=== PATIENT | female | born 1980 | race Caucasian/White ===

== ENCOUNTER 2017-01-27 20:39 | Emergency (ER) | payer BC, MEDICAID ==
[2017-01-27 20:53] VITALS: BP 123/63
--- NOTE | 2017-01-27 22:18 | EDM.PDOC ---
ED HISTORY OF PRESENT ILLNESS - General Chief Complaint: Respiratory Problem Stated Complaint: SOB COUGH FEVER Time Seen by Provider: 01/27/17 22:06 Source of Information: Reports: Patient History Limitations: Reports: No limitations - History of Present Illness INITIAL COMMENTS - FREE TEXT/NARRATIVE: Patient presents for evaluation and treatment of cough and cold symptoms. Patient reports that she has been ill for the last 2 days. She has tried at home [id number] medications without any symptom relief. Her current symptoms include fevers, chills, dry mouth, productive cough, shortness of breath, headaches and body aches. She denies any nausea, vomiting, diarrhea or abdominal pain. patient denies any ill contacts, however, she has a 5-year-old at home who is becoming ill. She did get her influenza shot this year. - Related Data Allergies/ADRs: Allergies Allergy/AdvReac Type Severity Reaction Status Date / Time sumatriptan [From Imitrex] Allergy Mild Anaphylactic Verified 01/27/17 20:48 Shock sumatriptan succinate Allergy Mild Anaphylactic Verified 01/27/17 20:48 [From Imitrex] Shock divalproex sodium AdvReac Tremors Verified 01/27/17 20:48 [From Depakote] metoclopramide HCl AdvReac Irritabilit Verified 01/27/17 20:48 [From Reglan] y Home Meds: Home Meds Ondansetron HCl [Zofran] 4 mg PO DAILY 08/29/16 [History] Pantoprazole Sodium [Protonix] 40 mg PO DAILY 08/29/16 [History] Ranitidine [Zantac] 150 mg PO DAILY 08/29/16 [History] Sucralfate [Carafate] 1 gm PO BID 08/29/16 [History] Acetaminophen [Tylenol Extra Strength] 1,000 mg PO ONCALL PRN 01/27/17 [History] Albuterol Sulfate 1 ampule INH ONCALL PRN 01/27/17 [History] Codeine/Promethazine [Phenergan with Codeine] 5 ml PO ONCALL PRN 01/27/17 [ History] Past Medical History - Past Health History Medical/Surgical History: Denies Medical/Surgical History Other Gastrointestinal History: 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: Endocrine/Metabolic History: Reports: Diabetes, type II Other Endocrine/Metabolic History: patient was over 400 lbs prior to gastric bypass in 2011, before gastric - Past Surgical History HEENT Surgical History: Reports: Adenoidectomy, Tonsillectomy GI Surgical History: Reports: Bariatric procedure, Cholecystectomy Social & Family History - Tobacco Use Smoking Status *Q: Current Every Day Smoker Years of Tobacco use: 1 Packs/Tins Daily: 0.5 Second Hand Smoke Exposure: No - Caffeine Use Caffeine Use: Reports: Coffee, Soda - Recreational Drug Use Recreational Drug Use: No ED ROS GENERAL - Review of Systems Review Of Systems: See Below Constitutional: Reports: fever, chills, weakness, decreased appetite, other ( bodyaches) HEENT: Reports: Other (dry mouth) Respiratory: Reports: Shortness of Breath, Cough GI/Abdominal: Denies: Abdominal pain, Diarrhea, Nausea, Vomiting Neurological: Reports: Headache ED EXAM, GENERAL - Physical Exam Exam: See Below Exam Limited By: No limitations General Appearance: alert, WD/WN, no apparent distress, other (tired and ill appearing) Ears: normal external exam, normal canal, hearing grossly normal, normal TMs Nose: normal inspection Throat/Mouth: Normal inspection, Normal lips, Normal oropharynx, Normal voice, No airway compromise Respiratory/Chest: no respiratory distress, lungs clear, normal breath sounds Cardiovascular: normal peripheral pulses, regular rate, rhythm, no murmur Neurological: alert, oriented, normal cognition Psychiatric: normal affect, normal mood Skin Exam: Warm, Dry Course - Vital Signs Last Recorded V/S: Last Vital Signs Temp 38.5 C H 01/27/17 20:51 Pulse 113 H 01/27/17 20:51 Resp 20 01/27/17 20:51 BP 123/63 01/27/17 20:51 Pulse Ox 100 01/27/17 20:51 - Re-Assessments/Exams Free Text/Narrative Re-Assessment/Exam: 01/27/17 22:19 Influenza is positive for type b. I informed patient of her positive test result. She is within the window for Tamiflu. She said that she has been on Tamiflu before and did not do well the side effects. She declines Tamiflu today. She reports that she has a younger 5- year-old at home who is starting to feel ill. I offered prophylactic Tamiflu for the child and she declined this. Supportive care. Will discharge home at this time. Departure - Departure Time of Disposition: 22:16 Disposition: Home, Self-Care 01 Condition: fair Clinical Impression: Influenza Instructions: Influenza, Adult, [id number] Referrals: Carolina Cage DO [Primary Care Provider] - Forms: ED Department Discharge, Return to Work/School Form Additional Instructions: Tylenol every 4-6 hours as needed for fever and pain relief. Rest and plenty of fluids. Please return to the ER if your symptoms change or worsen. Note given for work.
== END 2017-01-27 22:36 | disposition home or self-care (01) ==
LOC: JD.ED 20:39
DX: J10.1 Influenza due to other identified influenza virus with other respiratory manifestations (principal); E11.9 Type 2 diabetes mellitus without complications; F17.210 Nicotine dependence, cigarettes, uncomplicated; Z98.890 Other specified postprocedural states; Z98.84 Bariatric surgery status; Z90.49 Acquired absence of other specified parts of digestive tract; Z88.8 Allergy status to other drugs, medicaments and biological substances; Z79.899 Other long term (current) drug therapy
CPT/HCPCS: 87804; 99282; 99285

== ENCOUNTER 2017-06-04 00:54 | Emergency (ER) | payer BC ==
[2017-06-04 01:03] VITALS: BP 123/83
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
== END 2017-06-04 02:30 | disposition home or self-care (01) ==
LOC: JD.ED 00:54
DX: S40.211A Abrasion of right shoulder, initial encounter (principal); K21.9 Gastro-esophageal reflux disease without esophagitis; E11.9 Type 2 diabetes mellitus without complications; F17.210 Nicotine dependence, cigarettes, uncomplicated; Z98.84 Bariatric surgery status; Z90.49 Acquired absence of other specified parts of digestive tract; Z98.818 Other dental procedure status; Z98.890 Other specified postprocedural states; Z79.899 Other long term (current) drug therapy; Z88.8 Allergy status to other drugs, medicaments and biological substances; Y04.0XXA Assault by unarmed brawl or fight, initial encounter
CPT/HCPCS: 99282; 99284

== ENCOUNTER 2017-08-12 06:40 | Day surgery (SDC) | payer BC ==
[2017-08-12] MEDS ORDERED: Sodium Chloride 0.9% 10 ML Syringe FLUSH PRN (07:00)
[2017-08-12] MEDS ORDERED: Lidocaine 1% with EPINEPHrine 1:100,000 20 ML MDV ONE (07:00)
[2017-08-12] MEDS ORDERED: Lidocaine 1%/Sod Bicarbonate in NS 8.4% 1 ML Syringe PRN (07:00)
[2017-08-12] MEDS ORDERED: Sodium Chloride 0.9% 50 ML SDV ONE (07:00)
--- NOTE | 2017-08-12 07:08 | PCM.PREANE ---
Preanesthetic Assessment - Anesthesia/Transfusion/Family Hx Anesthesia History: Prior Anesthesia Reaction Type of Anesthesia Reaction: Other (see below) Other Type of Anesthesia Reaction Comment: PONV Family History of Anesthesia Reaction: No Transfusion History: No Prior Transfusion(s) - Review of Systems General: No Symptoms Pulmonary: No Symptoms Cardiovascular: No Symptoms Gastrointestinal: Abdominal Pain Neurological: No Symptoms Other: Reports: None - Physical Assessment NPO Status Date: 08/11/17 NPO Status Time: 23:00 Pulse: 89 O2 Sat by Pulse Oximetry: 95 Respiratory Rate: 16 Blood Pressure: 115/81 Temperature: 37.3 C Height: 1.73 m Weight: 65.771 kg ASA Class: 2 Mental Status: Alert & Oriented x3 Airway Class: Mallampati = 1 Dentition: Reports: Normal Dentition Mouth Opening Finger Breadths: 3 ROM/Head Extension: Full Lungs: Clear to Auscultation Cardiovascular: Regular Rate Other: Neg HCG - Lab Values: Laboratory Last Values WBC 7.70 K/mm3 (3.98-10.04) 08/11/17 11:54 RBC 4.25 M/mm3 (3.98-5.22) 08/11/17 11:54 Hgb 13.2 gm/L (11.2-15.7) 08/11/17 11:54 Hct 39.9 % (34.1-44.9) 08/11/17 11:54 MCV 93.9 fl (79.4-94.8) 08/11/17 11:54 MCH 31.1 pg (25.6-32.2) 08/11/17 11:54 MCHC 33.1 g/dl (32.2-35.5) 08/11/17 11:54 RDW Std Deviation 48.0 fL (36.4-46.3) H 08/11/17 11:54 Plt Count 249 K/mm3 (182-369) 08/11/17 11:54 MPV 10.3 fl (9.4-12.3) 08/11/17 11:54 Neut % (Auto) 60.2 % (34.0-71.1) 08/11/17 11:54 Lymph % (Auto) 30.1 % (19.3-51.7) 08/11/17 11:54 [place] % (Auto) 7.5 % (4.7-12.5) 08/11/17 11:54 Eos % (Auto) 1.3 (0.7-5.8) 08/11/17 11:54 Baso % (Auto) 0.8 % (0.1-1.2) 08/11/17 11:54 Neut # (Auto) 4.63 K/mm3 (1.56-6.13) 08/11/17 11:54 Lymph # (Auto) 2.32 K/mm3 (1.18-3.74) 08/11/17 11:54 [place] # (Auto) 0.58 K/mm3 (0.24-0.36) H 08/11/17 11:54 Eos # (Auto) 0.10 K/mm3 (0.04-0.36) 08/11/17 11:54 Baso # (Auto) 0.06 K/mm3 (0.01-0.08) 08/11/17 11:54 Creatinine 0.6 mg/dL (0.55-1.02) 08/11/17 11:54 Est Cr Clr Drug Dosing 130.76 mL/min 08/11/17 11:54 Estimated GFR (MDRD) > 60 mL/min (>60) 08/11/17 11:54 Urine Color Yellow (Yellow) 08/11/17 11:54 Urine Appearance Clear (Clear) 08/11/17 11:54 Urine pH 6.5 (5.0-8.0) 08/11/17 11:54 Ur Specific [place] 1.025 (1.005-1.030) 08/11/17 11:54 Urine Protein Negative (Negative) 08/11/17 11:54 Urine Glucose (UA) Negative (Negative) 08/11/17 11:54 Urine Ketones 1+ (Negative) H 08/11/17 11:54 Urine Occult Blood Trace-intact (Negative) H 08/11/17 11:54 Urine Nitrite Negative (Negative) 08/11/17 11:54 Urine Bilirubin Negative (Negative) 08/11/17 11:54 Urine Urobilinogen 0.2 (0.2-1.0) 08/11/17 11:54 Ur Leukocyte Esterase Negative (Negative) 08/11/17 11:54 Urine HCG, Qual Negative (NEGATIVE) 08/11/17 11:54 Blood Type B POSITIVE 08/11/17 11:54 Gel Antibody Screen Negative 08/11/17 11:54 - Allergies Allergies/Adverse Reactions: Allergies Allergy/AdvReac Type Severity Reaction Status Date / Time sumatriptan [From Imitrex] Allergy Mild Anaphylactic Verified 08/11/17 14:11 Shock sumatriptan succinate Allergy Mild Anaphylactic Verified 08/11/17 14:11 [From Imitrex] Shock divalproex sodium AdvReac Tremors Verified 08/11/17 14:11 [From Depakote] metoclopramide HCl AdvReac Irritabilit Verified 08/11/17 14:11 [From Reglan] y - Blood Blood Available: Yes - Acknowledgements Anesthesia Type Planned: General Anesthesia Pt an Appropriate Candidate for the Planned Anesthesia: Yes Alternatives and Risks of Anesthesia Discussed w Pt/Guardian: Yes Pt/Guardian Understands and Agrees with Anesthesia Plan: Yes PreAnesthesia Questionnaire - Past Health History Medical/Surgical History: Denies Medical/Surgical History Cardiovascular History: Reports: None, Other (See Below) (PVC) Gastrointestinal History: Reports: GERD, PUD Other Gastrointestinal History: gastric bypass Genitourinary History: Reports: STD, Other (See Below) Other Genitourinary History: HPV 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: , 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 (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) Other OB/BYN History: , anovulation, bacterial and yeast vaginitis, spontaneous , irregular menses, menorrhagia, post coital bleeding Musculoskeletal History: Reports: Other (See Below) Other Musculoskeletal History: restless leg syndrome Neurological History: Reports: None Psychiatric History: Reports: Anxiety, Depression Endocrine/Metabolic History: Reports: Diabetes, Type II Other Endocrine/Metabolic History: patient was over 400 lbs prior to gastric bypass in 2011, before gastric Hematologic History: Reports: Anemia Immunologic History: Reports: None Oncologic (Cancer) History: Reports: None Dermatologic History: Reports: None - Past Surgical History Head Surgeries/Procedures: Reports: None HEENT Surgical History: Reports: Adenoidectomy, Oral Surgery, Tonsillectomy Cardiovascular Surgical History: Reports: None Respiratory Surgical History: Reports: None GI Surgical History: Reports: Bariatric Procedure, Cholecystectomy Female Surgical History: Reports: Cervical Conization, Cervical Cryotherapy, D&C, LEEP Neurological Surgical History: Reports: None Oncologic Surgical History: Reports: None Dermatological Surgical History: Reports: None - SUBSTANCE USE Smoking Status *Q: Current Every Day Smoker (10 year smoking history) Tobacco Use Within Last Twelve Months: Cigarettes, Other (See Below) Second Hand Smoke Exposure: No Days Per Week of Alcohol Use: 4 Number of Drinks Per Day: 3 Total Drinks Per Week: 12 Date of Last Drink: 08/11/17 Recreational Drug Use History: No - HOME MEDS Home Medications: Home Meds Pantoprazole Sodium [Protonix] 40 mg PO DAILY 08/29/16 [History] Ranitidine [Zantac] 150 mg PO DAILY 08/29/16 [History] Sucralfate [Carafate] 1 gm PO BID 08/29/16 [History] Biotin 10,000 mcg PO DAILY 08/11/17 [History] Calcium Carbonate [Tums Extra Strength] 2 tab PO TID 08/11/17 [History] Cyanocobalamin (Vitamin B-12) [Vitamin B-12] 1,000 mcg PO DAILY 08/11/17 [ History] Ferrous Sulfate [Iron] 325 mg PO BID 08/11/17 [History] LORazepam [LORazepam] 1 mg PO BEDTIME 08/11/17 [History] Multivitamin [Flintstones] 3 tab PO DAILY 08/11/17 [History] - CURRENT (IN HOUSE) MEDS Current Meds: Current Medications Lactated Ringer's (Ringers, Lactated) 1,000 mls @ 125 mls/hr IV ASDIRECTED EARLE Stop: 08/12/17 23:00 Lidocaine/Sodium Bicarbonate (Buffered Lidocaine 1% In Ns 8.4%) 0.25 ml .XX ONETIME PRN PRN Reason: Prior to IV Start Stop: 08/12/17 18:00 Sodium Chloride (Saline Flush) 10 ml FLUSH ASDIRECTED PRN PRN Reason: Keep Vein Open Stop: 08/12/17 18:00
[2017-08-12] MEDS: Lactated Ringers 1,000 ML IV SCH ×2 (07:10→10:46)
[2017-08-12] MEDS ORDERED: Scopolamine 1.5 MG Transdermal Patch TRDERM ONE (07:18)
[2017-08-12] MEDS ORDERED: Lidocaine 1% 4 ML ONE (07:40)
[2017-08-12] MEDS ORDERED: Rocuronium 50 MG/5 ML Vial ONE (07:40)
[2017-08-12] MEDS ORDERED: fentaNYL 250 MCG/5 ML SDV ONE (07:41)
[2017-08-12] MEDS ORDERED: Midazolam 1 MG/ML 2 ML SDV ONE (07:41)
[2017-08-12] MEDS ORDERED: Propofol 200 MG/20 ML SDV ONE (07:41)
[2017-08-12] MEDS ORDERED: Dexamethasone 4 MG/ML 5 ML MDV ONE (07:42)
[2017-08-12] MEDS ORDERED: Ondansetron 4 MG/2 ML SDV ONE (07:42)
[2017-08-12] MEDS ORDERED: Ondansetron 4 MG/2 ML SDV IVPUSH PRN ×2 (08:08→08:55)
[2017-08-12] MEDS ORDERED: Meperidine PF 50 MG/ML Syringe IVPUSH PRN (08:08)
[2017-08-12] MEDS ORDERED: ceFAZolin 1 GM Vial ONE (08:16)
[2017-08-12] MEDS ORDERED: Lactated Ringers 1,000 ML ONE (08:26)
[2017-08-12] MEDS ORDERED: Ketamine 500 mg/10 ML MDV ONE (08:27)
[2017-08-12] MEDS ORDERED: Neostigmine Methylsulfate 10 MG/10 ML MDV ONE (08:32)
[2017-08-12] MEDS ORDERED: HYDROmorphone 2 MG Tab PO PRN ×2 (08:55→10:25)
--- NOTE | 2017-08-12 09:04 | PCM.OPNOTE ---
- General Post-Op/Procedure Note Date of Surgery/Procedure: 08/12/17 Operative Procedure(s): Total vaginal hysterectomy with bilateral salpingectomy Findings: Uterus is upper limits normal size. Increased vascularity in the left adnexal area. Grade 1 cystocele, grade 1 rectocele noted. Ovaries appeared functional but normal. Fallopian tubes appeared normal. Pre Op Diagnosis: Menorrhagia, irregular menstrual bleeding Post-Op Diagnosis: Same Anesthesia Technique: General ET Tube Other Anesthesia Type: Local with Lidocaine quarter percent with [id number] mL total Primary Surgeon: Eric Henley Secondary Surgeon: Gurwinder Hector Pathology: Uterus, bilateral tubes in one specimen container Fluid Replacement, Intraop: 1,300 (Crystalloid) EBL in mLs: 50 Complications: None Condition: Good Free Text/Narrative:: Surgery duration: 43 minutes Procedure: The patient was placed in supine position on the operating table. General endotracheal anesthesia was accomplished. After positioning, and adequate prep and drape, the procedure was then performed. Sterile speculum was placed in the vagina and cervix was visualized. Cervix was injected with lidocaine quarter percent with [id number] mL used. A full circumference incision was made in the cervical epithelium. The bladder was pushed well back off cervix. Posterior cul-de-sac was then entered sharply without problems. Left uterosacral was crossclamped with a LigaSure vessel closure system. The left uterosacral and then the right uterosacral ligament pedicles were developed using the Enseal system. The anterior cul-de-sac was then entered without problems and the uterine vasculature, cardinal ligament and broad ligament then developed using Enseal vessel closure system. The uterus was inverted at this time and upper broad ligament fallopian tube pedicles were crossclamped with Arielle clamps. Specimen was totally removed. Both these pedicles were then secured with a Arielle stitch of #1 Vicryl. Left and right fallopian tube was normal in appearance.. Using Enseal vessel closure system each of the tubes was then removed and sent with the specimen. The posterior vaginal cuff was run with an 0 Monocryl suture from approximately 2:00 to 10 o'clock position for hemostatic reasons. The patient was found to be hemostatically intact at this time, both ovaries appeared normal and were left in place. A pursestring suture was and placed in the peritoneal cavity externalizing pedicles in case of bleeding. Vaginal cuff was sutured for hemostatic reasons with a running locked suture of 0 Monocryl from the 2 o' clock position to the 10 o'clock position posteriorly. Vaginal cuff was then closed from right to left side with a running lock suture of 0 Monocryl.Patient was returned to supine position and awakened from general endotracheal anesthesia. She tolerated the procedure was then left the operating room in satisfactory condition.
[2017-08-12] MEDS: fentaNYL 100 MCG/2 ML SDV IVPUSH PRN ×2 (09:07→09:37)
[2017-08-12] MEDS: HYDROmorphone 0.5 MG/0.5 ML Syringe IVPUSH PRN ×2 (09:10→09:40)
--- NOTE | 2017-08-12 09:11 | PCM.POSTAN ---
POST ANESTHESIA ASSESSMENT - MENTAL STATUS Mental Status: Alert - VITAL SIGNS Pulse Rate: 64 SaO2: 99 Resp Rate: 17 Blood Pressure: 107/67 Temperature: 37.3 C - RESPIRATORY Respiratory Status: Respiratory Rate WNL, Airway Patent, O2 Saturation Stable, Supplemental Oxygen - CARDIOVASCULAR CV Status: Pulse Rate WNL, Blood Pressure Stable - GASTROINTESTINAL GI Status: No Symptoms - PAIN Pain Score: 3 - POST OP HYDRATION Hydration Status: Adequate & Stable
[2017-08-12] MEDS ORDERED: LORazepam 0.5 MG Tab PO PRN (13:46)
[2017-08-12] MEDS ORDERED: HYDROmorphone 1 MG/ML Syringe IM ONE (14:00)
[2017-08-12] MEDS ORDERED: HYDROmorphone 1 MG/ML Syringe IV ONE (14:15)
[2017-08-12 17:00] VITALS: BP 95/54
== END 2017-08-12 17:00 | disposition home or self-care (01) ==
LOC: JD.SDS 06:40
PROVIDERS: ATTEND Obstetrics & Gynecology
DX: D25.1 Intramural leiomyoma of uterus (principal); D25.2 Subserosal leiomyoma of uterus; N83.8 Other noninflammatory disorders of ovary, fallopian tube and broad ligament; K21.9 Gastro-esophageal reflux disease without esophagitis; E11.9 Type 2 diabetes mellitus without complications; Z98.84 Bariatric surgery status; Z88.8 Allergy status to other drugs, medicaments and biological substances; Z98.890 Other specified postprocedural states; Z87.891 Personal history of nicotine dependence
CPT/HCPCS: 36415; 58262; 81003; 81025; 82565; 85025; 86850; 86900; 86901; A9270; J0690; J1100; J1170; J2250; J2405; J2710; J3010; J7120; 00944; J2704

== ENCOUNTER 2017-08-18 22:23 | Observation (INO) | payer BC ==
[2017-08-18] MEDS ORDERED: HYDROmorphone 1 MG/ML Syringe IVPUSH ONE (22:46)
[2017-08-18] MEDS ORDERED: Ondansetron 4 MG/2 ML SDV IVPUSH ONE (22:46)
--- NOTE | 2017-08-18 22:51 | EDM.PDOC ---
ED HPI GENERAL MEDICAL PROBLEM - General Chief Complaint: Abdominal Pain Stated Complaint: abdominal pain sob Time Seen by Provider: 08/18/17 22:46 Source of Information: Reports: Patient, Family (spouse) History Limitations: Reports: No Limitations - History of Present Illness INITIAL COMMENTS - FREE TEXT/NARRATIVE: 36-year-old female presents to the ED complaining of diffuse abdominal pain which is constant with a strong colicky component. Associated nausea and dry heaving. She's not able to vomit because of previous gastric bypass surgery. Patient is a previous cholecystectomy as well. Patient underwent a vaginal hysterectomy [address] Henley. She's been self catheterizing since the surgery but has not self catheterized today. Was seen in the walk-in clinic today and identified to have a urinary tract infection started on Bactrim double strength of which she's had one tablet. She does feel febrile and reports chills. Is eating very little today. Feels short of breath with aggravation of abdominal pain with breathing. Patient states her bowel function was pretty good yesterday and she remains on stool softeners. She's been taking hydromorphone tablets for pain relief postop but states she didn't take any today. Onset: Today Onset Date: 08/18/17 (Has been having abdominal pain all day today just much worse the last 4 hours.) Duration: Hour(s): Location: Reports: Abdomen Quality: Reports: Sharp (Pain is constant with a strong colicky component), Stabbing, Other Severity: Severe (She reports pain is 10 out of 10 and is very tearful.) Improves with: Reports: None Worsens with: Reports: None Context: Reports: Other (Recent abdominal surgery with a transvaginal hysterectomy 6 days ago.). Denies: Activity, Exercise, Lifting, Sick Contact Associated Symptoms: Reports: Fever/Chills, Loss of Appetite, Malaise, Nausea/ Vomiting (Nausea but unable to vomit because of previous gastric bypass. Is dry heaving.), Shortness of Breath. 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: Reports: Other (see below) (None.) Abdomen Pain Score (Numeric/FACES): 10 - Related Data Allergies Allergy/AdvReac Type Severity Reaction Status Date / Time sumatriptan [From Imitrex] Allergy Severe Anaphylactic Verified 08/12/17 09:01 Shock sumatriptan succinate Allergy Severe Anaphylactic Verified 08/12/17 09:01 [From Imitrex] Shock divalproex sodium AdvReac Tremors Verified 08/12/17 07:44 [From Depakote] metoclopramide HCl AdvReac Irritabilit Verified 08/12/17 07:44 [From Reglan] y Home Meds: Home Meds Pantoprazole Sodium [Protonix] 40 mg PO DAILY 08/29/16 [History] Ranitidine [Zantac] 150 mg PO DAILY 08/29/16 [History] Sucralfate [Carafate] 1 gm PO BID 08/29/16 [History] Biotin 10,000 mcg PO DAILY 08/11/17 [History] Calcium Carbonate [Tums Extra Strength] 2 tab PO TID 08/11/17 [History] Cyanocobalamin (Vitamin B-12) [Vitamin B-12] 1,000 mcg PO DAILY 08/11/17 [ History] Ferrous Sulfate [Iron] 325 mg PO BID 08/11/17 [History] LORazepam 1 mg PO BEDTIME 08/11/17 [History] Multivitamin [Flintstones] 3 tab PO DAILY 08/11/17 [History] Bethanechol [Urecholine] 10 mg PO ASDIRECTED 08/18/17 [History] HYDROmorphone [Dilaudid] 1 mg PO ASDIRECTED 08/18/17 [History] Sulfamethoxazole/Trimethoprim [Bactrim Ds Tablet] 1 tab PO BID 08/18/17 [History ] Past Medical History - Past Health History Medical/Surgical History: Denies Medical/Surgical History Cardiovascular History: Reports: None, Other (See Below) Respiratory History: Reports: None Gastrointestinal History: Reports: GERD, PUD Other Gastrointestinal History: gastric bypass Genitourinary History: Reports: STD, Other (See Below) Other Genitourinary History: HPV 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 OB/BYN History: , anovulation, bacterial and yeast vaginitis, spontaneous , irregular menses, menorrhagia, post coital bleeding Musculoskeletal History: Reports: Other (See Below) Other Musculoskeletal History: restless leg syndrome Neurological History: Reports: None Psychiatric History: Reports: Anxiety, Depression Endocrine/Metabolic History: Reports: Diabetes, Type II Other Endocrine/Metabolic History: patient was over 400 lbs prior to gastric bypass in 2012, before gastric Hematologic History: Reports: Anemia Immunologic History: Reports: None Oncologic (Cancer) History: Reports: None Dermatologic History: Reports: None - Past Surgical History Head Surgeries/Procedures: Reports: None HEENT Surgical History: Reports: Adenoidectomy, Oral Surgery, Tonsillectomy Cardiovascular Surgical History: Reports: None Respiratory Surgical History: Reports: None GI Surgical History: Reports: Bariatric Procedure, Cholecystectomy Female Surgical History: Reports: D&C, LEEP Neurological Surgical History: Reports: None Oncologic Surgical History: Reports: None Dermatological Surgical History: Reports: None Social & Family History - Tobacco Use Smoking Status *Q: Current Every Day Smoker Years of Tobacco use: 2 Packs/Tins Daily: 1 Second Hand Smoke Exposure: No - Caffeine Use Caffeine Use: Reports: Coffee, Energy Drinks, Soda, Tea - Alcohol Use Days Per Week of Alcohol Use: 4 Number of Drinks Per Day: 3 Total Drinks Per Week: 12 - Recreational Drug Use Recreational Drug Use: No - Living Situation & Occupation Living situation: Reports: , with Spouse, with Family (3 kids) 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 Denies: Wheezing, Pleuritic Chest Pain, Cough, Sputum, Hemoptysis, Other Cardiovascular: Reports: Lightheadedness. Denies: Chest Pain (Can take a full deep breath because it aggravates the abdominal pain.), Blood Pressure Problem, Claudication, Dyspnea on Exertion, Edema, Orthopnea, Palpitations Endocrine: Reports: No Symptoms GI/Abdominal: Reports: Abdominal Pain (See history of present illness), Decreased Appetite, Nausea. Denies: Diarrhea, Difficulty Swallowing, Distension , Flatus, Hematemesis, Hematochezia, Melena, Mucous in Stool, Vomiting, Other : Reports: Other (She has been self catheterizing since transvaginal hysterectomy 6 days ago. She has not catheterized today. Diagnosed with urinary tract infection this morning in walk-in clinic and started on Bactrim double strength which she's had one tablet.) Musculoskeletal: Reports: No Symptoms Skin: Reports: No Symptoms Neurological: Reports: No Symptoms Psychiatric: Reports: No Symptoms ED EXAM, GI/ABD - Physical Exam Exam: See Below Exam Limited By: No Limitations General Appearance: Moderate Distress (In obvious discomfort. Very tearful and appears anxious.) Eyes: Bilateral: Normal Appearance (No jaundice) Throat/Mouth: Normal Inspection, Normal Lips, Normal Oropharynx Neck: Normal Inspection, Supple, Non-Tender, Full Range of Motion. No: Lymphadenopathy (R), Tender Midline Respiratory/Chest: Lungs Clear, Normal Breath Sounds (Tachypnea due to abdominal pain), No Accessory Muscle Use, Chest Non-Tender, Respiratory Distress Cardiovascular: Normal Peripheral Pulses, Regular Rate, Rhythm, No Edema, No Gallop, No Murmur, No Rub GI/Abdominal Exam: Tender (Tender throughout the entire abdomen. Unable localize any one area of tenderness. Nose convincing evidence of peritonitis.), Abnormal Bowel Sounds (Mildly hyperactive bowel sounds.) Back Exam: CVA Tenderness (L), CVA Tenderness (R) (Mild mild) Extremities: Normal Inspection, Normal Range of Motion, Non-Tender, No Pedal Edema Neurological: Alert, Oriented, CN II-XII Intact, Normal Cognition, No Motor/ Sensory Deficits Psychiatric: Anxious, Tearful Skin Exam: Warm, Dry, Intact, Normal Color, Other (Does feel like she has a low- grade fever.) Course - Vital Signs Last Recorded V/S: Last Vital Signs Temp 37.0 C 08/18/17 22:35 Pulse 92 08/18/17 22:35 Resp 24 H 08/18/17 22:35 BP 119/58 L 08/18/17 22:35 Pulse Ox 98 08/18/17 22:35 - Orders/Labs/Meds Orders: Active Orders 24 hr Category Date Time Status Admission Status [Patient Status] [ADT] Routine ADT 08/19/17 06:43 Ordered Abdomen 1V Flat [CR] Stat Exams 08/18/17 22:47 Taken Abdomen Pelvis w Cont [CT] Stat Exams 08/19/17 00:06 Taken Chest 1V Frontal [CR] Stat Exams 08/18/17 22:48 Taken CULTURE BLOOD [BC] Stat Lab 08/18/17 23:05 Received CULTURE BLOOD [BC] Stat Lab 08/18/17 23:10 Received Dextrose 5%-0.9% NaCl [Dextrose 5%-Normal Saline] 1,000 Med 08/18/17 23:00 Active ml IV ASDIRECTED Ketorolac [Toradol] Med 08/19/17 01:15 Active 30 mg IVPUSH ONETIME Promethazine [Phenergan] 25 mg Med 08/19/17 06:42 Ordered Sodium Chloride 0.9% [Normal Saline] 50 ml IV ONETIME Blood Culture x2 Reflex Set [OM.PC] Stat Oth 08/18/17 22:47 Ordered Medication Orders Dextrose/Sodium Chloride (Dextrose 5%-Normal Saline) 1,000 mls @ 500 mls/hr IV ASDIRECTED EARLE Last Admin: 08/18/17 23:16 Dose: 500 mls/hr Ketorolac Tromethamine (Toradol) 30 mg IVPUSH ONETIME EARLE Last Admin: 08/19/17 01:22 Dose: 30 mg Labs: Laboratory Tests 08/18/17 08/18/17 08/19/17 Range/Units 22:37 22:37 00:00 WBC 11.04 H (3.98-10.04) K/mm3 RBC 4.42 (3.98-5.22) M/mm3 Hgb 13.7 (11.2-15.7) gm/L Hct 41.1 (34.1-44.9) % MCV 93.0 (79.4-94.8) fl MCH 31.0 (25.6-32.2) pg MCHC 33.3 (32.2-35.5) g/dl RDW Std Deviation 46.0 (36.4-46.3) fL Plt Count 242 (182-369) K/mm3 MPV 10.3 (9.4-12.3) fl Neutrophils % (Manual) 87 H (40-60) % Band Neutrophils % 2 (0-10) % Lymphocytes % (Manual) 10 L (20-40) % Atypical Lymphs % 0 % Monocytes % (Manual) 1 L (2-10) % Eosinophils % (Manual) 0 L (0.7-5.8) % Basophils % (Manual) 0 L (0.1-1.2) Platelet Estimate Adequate RBC Morph Comment Normal Sodium 139 (136-145) mEq/L Potassium 3.7 (3.5-5.1) mEq/L Chloride 104 (98-107) mEq/L Carbon Dioxide 22 (21-32) mEq/L Anion Gap 16.7 H (5-15) BUN 20 H (7-18) mg/dL Creatinine 0.7 (0.55-1.02) mg/dL Est Cr Clr Drug Dosing 112.08 mL/min Estimated GFR (MDRD) > 60 (>60) mL/min BUN/Creatinine Ratio 28.6 H (14-18) Glucose 126 H (74-106) mg/dL Calcium 8.8 (8.5-10.1) mg/dL Total Bilirubin 0.2 (0.2-1.0) mg/dL AST 160 H (15-37) U/L ALT 66 H (14-59) U/L Alkaline Phosphatase 94 (46-116) U/L C-Reactive Protein < 0.2 (<1.0) mg/dL Total Protein 7.1 (6.4-8.2) g/dl Albumin 3.7 (3.4-5.0) g/dl Globulin 3.4 gm/dL Albumin/Globulin Ratio 1.1 (1-2) Lipase 153 (73-393) U/L Urine Color [place] H (Yellow) Urine Appearance Clear (Clear) Urine pH 5.0 (5.0-8.0) Ur Specific [place] 1.015 (1.005-1.030) Urine Protein 2+ H (Negative) Urine Glucose (UA) 1+ H (Negative) Urine Ketones 1+ H (Negative) Urine Occult Blood Trace-intact H (Negative) Urine Nitrite Positive H (Negative) Urine Bilirubin 2+ H (Negative) Urine Urobilinogen >=8.0 H (0.2-1.0) Ur Leukocyte Esterase 3+ H (Negative) Urine RBC 5-10 H (0-5) /hpf Urine WBC 10-20 H (0-5) /hpf Ur Epithelial Cells 5-10 H (0-5) /hpf Urine Bacteria Few (FEW) /hpf Urine Mucus Many H (FEW) /hpf Meds: Medications Generic Name Dose Route Start Last Admin Trade Name Freq PRN Reason Stop Dose Admin Dextrose/Sodium Chloride 1,000 mls @ 500 mls/hr 08/18/17 23:00 08/18/17 23:16 Dextrose 5%-Normal Saline IV 500 mls/hr ASDIRECTED EARLE Administration Ketorolac Tromethamine 30 mg 08/19/17 01:15 08/19/17 01:22 Toradol IVPUSH 30 mg ONETIME EARLE Administration Discontinued Medications Generic Name Dose Route Start Last Admin Trade Name Sonny PRN Reason Stop Dose Admin Diatrizoate Meglum/Diatrizoate Sod 45 ml 08/19/17 04:59 08/19/17 05:00 Gastrografin 37% PO 08/19/17 05:00 45 ml ONETIME ONE Administration Dicyclomine HCl 20 mg 08/19/17 06:41 Bentyl IM 08/19/17 06:42 ONETIME ONE Diphenhydramine HCl 25 mg 08/18/17 23:19 08/18/17 23:32 Benadryl IVPUSH 08/18/17 23:20 25 mg ONETIME ONE Administration Hydromorphone HCl 1 mg 08/18/17 22:46 08/18/17 22:53 Dilaudid IVPUSH 08/18/17 22:47 1 mg ONETIME ONE Administration Promethazine HCl 25 mg/ Sodium 51 mls @ 100 mls/hr 08/18/17 23:19 08/18/17 23 :30 Chloride IV 08/18/17 23:49 100 mls/hr ONETIME ONE Administration Iopamidol 125 ml 08/19/17 00:26 08/19/17 00:51 Isovue-300 (61%) IVPUSH 08/19/17 00:27 125 ml ONETIME ONE Administration Lactulose 20 gm 08/19/17 01:02 08/19/17 01:15 Cephulac PO 08/19/17 01:03 20 gm ONETIME ONE Administration Lorazepam 1 mg 08/19/17 03:09 08/19/17 03:16 Ativan IVPUSH 08/19/17 03:10 1 mg ONETIME ONE Administration Magnesium Citrate 300 ml 08/19/17 01:02 08/19/17 01:15 Citrate Of Magnesia PO 08/19/17 01:03 300 ml ONETIME ONE Administration Ondansetron HCl 4 mg 08/18/17 22:46 08/18/17 22:53 Zofran IVPUSH 08/18/17 22:47 4 mg ONETIME ONE Administration - Radiology Interpretation Free Text/Narrative:: 36-year-old female presents the ED with diffuse abdominal pain with a strong colicky component. She's had abdominal pain most of the day but is much worse over the last 4 hours. She cannot take a full deep breath and this is making her feel short of breath. The if she takes a full deep breath and aggravates the abdominal pain. She had underwent a transvaginal hysterectomy [address] Henley. She was been self catheterizing up until today. Diagnosed with a urinary tract infection this morning. Started on Bactrim double strength of which she's had one tablet. At present she does feel warm to palpation. Is tearful and writhing back and forth in pain. Mild bilateral costovertebral angle tenderness. Active bowel sounds all 4 quadrants. Pain had been controlled with Dilaudid tablets up until today she has not taken any. Bowels work fairly well yesterday. Appetite has been poor. Complains of abdominal pain almost everywhere that I touch. She does have slightly hyperactive bowel sounds present. Suspect intestinal colic with likely constipation. Concern for urinary retention is evident as she has not calf today but is has has had to do so up until today. Bladder scan will be done. IV will be D5 normal saline at 500 mils per hour. Given Dilaudid 1 mg IV for pain relief with Zofran 4 mg IV for nausea relief. Routine labs to be done including blood cultures 2 and a lipase and C- reactive protein. Repeat urinalysis. - Re-Assessments/Exams Free Text/Narrative Re-Assessment/Exam: 08/18/17 23:20 patient continues to have dry heaves and the Zofran does not appear to have helped at all. She's allergic to Reglan. I presume this was a dystonic reaction. Plan we'll give her Phenergan 25 mg IV in the minibag over 15 minutes. I will also give her Benadryl 25 mg IV to prevent any dystonic reaction between the Zofran and Phenergan. 08/18/17 23:23 Labs reveal a white count of 11.04 with 87% neutrophils and 2% band cells. Hemoglobin is 13.7 with hematocrit of 41.1. Platelets are normal at 242,000. Sodium is 139 potassium 3.7 chloride 104 bicarbonate 22. Anion gap is mildly elevated at 16.7. BUNs 20. EGFR is greater than 60. Creatinine is 0.7. Glucose is 126. AST is mildly elevated at 160 ALT is 66. Alkaline phosphatase normal at 94 bilirubin 0.2. Lipase is 153. CRP is less than 0.2. She has not been able to go to x-ray yet. 08/19/17 00:12 the Phenergan has helped control the nausea with no further dry heaving. She is pretty fatigued from the Phenergan and Benadryl effect. Still having abdominal pain. The KUB reveals a diffuse amount of air throughout both the large and small bowel. There appears to be a fluid collection in the pelvis and in the right mid hemiabdomen. Will therefore have CT of the abdomen performed with IV contrast only as I don't think she can keep down oral contrast. 08/19/17 00:31reports that bladder scan read as a completely empty bladder. 08/19/17 00:51 CT of the abdomen and pelvis has been performed with IV contrast only. It reveals a normal-appearing liver. Previous cholecystectomy. Pancreas appears normal spleen appears normal. Results of gastric bypass surgery with a small amount of residual food in the stomach. The remainder of the CT reveals a large amount of air distending parts of the colon. There is severe constipation involving the right hemicolon up underneath the liver. This appears to be the fluid like mass that I identified on KUB. Bladder filled nrmally. kidneys appear normal with renal cysts but no signs of renal obstruction. There is a enlargement of the left adrenal gland partially 1 cm in width which is an incidentalnoma. There is evidence of recent surgery in the pelvis with a small amount of fluid collection but nothing that would suggest abscess or hematoma. Patient will have to drink Citroma to provide relief of the abdominal pain and get her bowels working. I will mix it with 20 g of lactulose syrup as well. 08/19/17 01:06 radiologist from the red agrees with dilated loops of small bowel in the pelvis containing a large amount of fluid and air throughout the colon. They suggest this may be due to an ileus. They noted a 2 cm right ovarian cyst. Patient has active bowel sounds and I believe the obstruction is due to the stool in the right hemicolon. We'll try and see if she can keep down oral medications at this time to get the bowel working. He. In the ED overnight on IV fluids to rehydrate her and control her pain. I will give her Toradol 30 mg IV in the hopes that this will control her pain without need for further narcotic which will further small bowel down. 08/19/17 03:09 patient has managed to get down all of the Citroma and 20 g of lactulose orally. She is complaining of slight increased pain. Is requesting further analgesia. The do not want to give her any further narcotic. I've already given her Toradol. I'm going to give her some Ativan 1 mg IV in the hopes that this may provide some sedation and allow her to sleep for a period of time. 08/19/17 04:17 patient is been up to the bathroom once. Should this is only to void however. She at this time does not feel any urge to have a bowel movement. Still having moderate abdominal pain. 08/19/17 04:56 still no feeling of need to have a bowel movement. Will give her 45 mils of Gastrografin with water per ora to see if this will further stimulate the bowel. 08/19/17 06:46 reexamination reveals that she is passing flatus but does not have any feeling of urge to have a bowel movement. Examination reveals active bowel sounds in all 4 quadrants therefore the bowel is moving. She remains nauseated and having discomfort of course from cramping. Decision made to keep her in the hospital until her nausea and vomiting and bowel function returns to normal. At present she is unable to eat. I therefore spoke with Dr. Henley and he has agreed to admit her to the med surgery floor for observation until her bowel function returns. Patient is in agreement with this decision. Will repeat Phenergan 25 mg IV over 15 minutes and will give Bentyl 20 mg IM for abdominal cramping pain. Narcotics are to be avoided if at all possible as this is one of the major cause of her constipation. Departure - Departure Time of Disposition: 06:48 Disposition: Refer to Observation Condition: Fair Clinical Impression: Constipation by delayed colonic transit Abdominal pain Qualifiers: Abdominal location: generalized Qualified Code(s): R10.84 - Generalized abdominal pain Nausea and vomiting Qualifiers: Vomiting type: bilious vomiting Qualified Code(s): R11.14 - Bilious vomiting - Discharge Information Referrals: Eirc Henley MD [Primary Care Provider] - Forms: ED Department Discharge - My Orders Last 24 Hours: My Active Orders 08/18/17 22:47 Abdomen 1V Flat [CR] Stat Blood Culture x2 Reflex Set [OM.PC] Stat 08/18/17 22:48 Chest 1V Frontal [CR] Stat 08/18/17 23:00 Dextrose 5%-0.9% NaCl [Dextrose 5%-Normal Saline] 1,000 ml IV ASDIRECTED 08/18/17 23:05 CULTURE BLOOD [BC] Stat 08/18/17 23:10 CULTURE BLOOD [BC] Stat 08/19/17 00:06 Abdomen Pelvis w Cont [CT] Stat 08/19/17 01:15 Ketorolac [Toradol] 30 mg IVPUSH ONETIME 08/19/17 06:42 Promethazine [Phenergan] 25 mg Sodium Chloride 0.9% [Normal Saline] 50 ml IV ONETIME 08/19/17 06:43 Admission Status [Patient Status] [ADT] Routine - Assessment/Plan Last 24 Hours: My Active Orders 08/18/17 22:47 Abdomen 1V Flat [CR] Stat Blood Culture x2 Reflex Set [OM.PC] Stat 08/18/17 22:48 Chest 1V Frontal [CR] Stat 08/18/17 23:00 Dextrose 5%-0.9% NaCl [Dextrose 5%-Normal Saline] 1,000 ml IV ASDIRECTED 08/18/17 23:05 CULTURE BLOOD [BC] Stat 08/18/17 23:10 CULTURE BLOOD [BC] Stat 08/19/17 00:06 Abdomen Pelvis w Cont [CT] Stat 08/19/17 01:15 Ketorolac [Toradol] 30 mg IVPUSH ONETIME 08/19/17 06:42 Promethazine [Phenergan] 25 mg Sodium Chloride 0.9% [Normal Saline] 50 ml IV ONETIME 08/19/17 06:43 Admission Status [Patient Status] [ADT] Routine
[2017-08-18] MEDS: Dextrose 5%-0.9% NaCl 1,000 ML IV SCH ×2 (23:16→23:18)
[2017-08-18] MEDS ORDERED: Promethazine 25 MG in Sodium Chloride 0.9% 50 ML IV ONE (23:19)
[2017-08-18] MEDS ORDERED: diphenhydrAMINE 50 MG/ML SDV IVPUSH ONE (23:19)
[2017-08-19] MEDS ORDERED: Iopamidol 612 MG/ML 150 ML Bottle IVPUSH ONE (00:26)
[2017-08-19] MEDS ORDERED: Magnesium Citrate Solution 296 ML Bottle PO ONE (01:02)
[2017-08-19] MEDS ORDERED: Lactulose Soln 10 GM/15 ML 30 ML UD Cup PO ONE (01:02)
[2017-08-19] MEDS ORDERED: Ketorolac 30 MG/ML SDV IVPUSH SCH (01:15)
[2017-08-19] MEDS ORDERED: LORazepam 2 MG/ML MDV IVPUSH ONE (03:09)
[2017-08-19] MEDS ORDERED: Diatrizoate Meglumine/Diatrizoate Sodium 37% 120 ML Bottle PO ONE (04:59)
[2017-08-19] MEDS ORDERED: Dicyclomine 20 MG/2 ML SDV IM ONE (06:41)
[2017-08-19] MEDS ORDERED: Promethazine 25 MG in Sodium Chloride 0.9% 50 ML IV ONE (06:42)
[2017-08-19] MEDS ORDERED: Acetaminophen 325 MG Tab PO ONE (06:47)
--- NOTE | 2017-08-19 07:01 | CT ---
CT abdomen and pelvis Technique: Multiple axial sections were obtained from the top of the liver inferiorly through the pubic symphysis. Intravenous contrast was utilized. No oral contrast has been given. Delayed images were obtained through the pelvis. Comparison: Prior CT abdomen and pelvis exam dated 05/02/15. Findings: Mild intrahepatic biliary duct dilatation is seen. This likely is residual from previous cholecystectomy. Findings are seen on prior study but are minimally more prominent on current exam. Low-density region seen next to the ligamentum teres fissure within the liver most likely due to incidental fat. Spleen appears within normal limits. Small cysts are seen within both kidneys which are believed to be stable. Adrenal glands on the left side shows a small nodule within the alana vaguely felt to be present on prior study but better seen currently due to differences in sectioning. Pancreas appears within normal limits. Surgical clips seen from prior cholecystectomy. Anastomotic sutures are seen within bowel within the left upper abdomen. Previous hysterectomy is noted. Mild increased stool is seen within the colon. Fluid-filled slightly prominent small bowel loops are noted within the pelvis. Appendix is not definitely visualized. No inflammatory change or free fluid is seen. Impression: 1. Increased stool within the colon as well as slightly prominent fluid-filled small bowel. Findings are most likely due to ileus. 2. Slight intrahepatic biliary duct dilatation believed to be incidental and due to post cholecystectomy. 3. Focal fat near the ligamentum teres fissure within the liver. Small cysts within the kidneys. 4. Previous abdominal surgery. Diagnostic code #3 Agree with preliminary report issued by [email or web address] ([facility] preliminary report dictated on 08/19/17, 2:03 AM Central Time)
--- NOTE | 2017-08-19 07:01 | CR ---
Chest: Frontal view of the chest was obtained. Comparison: Previous chest x-ray of 09/05/11. Heart size and mediastinum are within normal limits for technique. Lungs are clear. Bony structures are grossly intact. Impression: 1. Nothing acute is identified on two-view chest x-ray. Diagnostic code #1
--- NOTE | 2017-08-19 07:01 | CR ---
Abdomen: Supine view of the abdomen was obtained. Comparison: Previous abdominal x-ray of 08/29/16. Slightly prominent gas-filled loop of small bowel and colon is seen. Surgical clips are seen from prior cholecystectomy as well as additional surgical clips seen within left upper abdomen. Bony structures are unremarkable. No abnormal calcifications are seen. Impression: 1. Slightly prominent gas within small bowel and colon most likely representing ileus. 2. Previous abdominal surgery is noted. Diagnostic code #2
[2017-08-19] MEDS ORDERED: Dicyclomine 10 MG Cap PO PRN (07:55)
[2017-08-19] MEDS ORDERED: Dicyclomine 20 MG/2 ML SDV IM PRN (07:58)
[2017-08-19] MEDS ORDERED: Dextrose 5%-0.9% NaCl 1,000 ML IV SCH (08:00)
[2017-08-19] MEDS ORDERED: Promethazine 25 MG in Sodium Chloride 0.9% 50 ML IV PRN (08:00)
[2017-08-19] MEDS ORDERED: Ondansetron 4 MG/2 ML SDV IVPUSH ONE (08:07)
[2017-08-19 12:30] VITALS: BP 94/49
--- NOTE | 2017-08-19 18:36 | PCM.SN ---
- Free Text/Narrative Note: Hospital course and discharge note: Rae was observed for an extended period time in [facility] because of abdominal discomfort and constipation symptoms. She had been given a cathartic in emergency room. Over the course of this 6 hours after being seen in the emergency room patient slept and was noted to have normal vital signs and was afebrile. On evaluation prior to discharge her vital signs are stable, lungs are clear with good breath sounds in all lung arzate. Cardiovascular exam showed regular rate and rhythm., Abdomen showed positive bowel sounds. It was soft, nontender and without masses or organomegaly. CT scan was normal with the exception of an increased amount of stool in the right hemicolon and transverse colon. Assessment/plan: Patient is had a bowel movement during the course of her time in the hospital. She is feeling better. She has been voiding well and without need to have catheterization. Is using only Bentyl as pain control. She is doing well and is desiring discharge. Discharge instructions: 1. Regular diet pushing fluids most important. 2. Regular activity but weight lifting no more than 25 pounds. No intercourse or tampons until seen back in clinic. 3. Patient is to call for inability to void, increasing pain, inability to have bowel movements. 4. Patient will add milk of magnesia 3 tablespoons every 6 hours when necessary to her regimen if she feels she needs to have a bowel movement. 5. Return to clinic as scheduled in approximately 2 weeks. We'll call and come into clinic if any problems arise sooner than that. Condition: Good Diagnosis: Postoperative constipation
--- NOTE | 2017-09-01 08:34 | PCM.DCSUM1 ---
Discharge Summary - Hospital Course Free Text/Narrative:: Admission diagnosis: Postoperative pelvic pain, constipation - Discharge Data Discharge Date: 08/19/17 Discharge Disposition: Home, Self-Care 01 Condition: Good - Patient Summary/Data Hospital Course: Patient was seen in emergency room, given mag citrate and was monitored. Because of the slow paced at which the bowel function returned patient was moved to the floor. She had a Pap and moderately good results with the treatment of constipation and slept most of the rest the morning. She was discharged late morning feeling well. Pain was 2-3 on a scale of 10. - Patient Instructions Diet: Regular Diet as Tolerated (I fiber diet with plenty of fluid intake.) Activity: As Tolerated Driving: May Drive Today Showering/Bathing: May Shower Notify Provider of: Fever, Increased Pain, Swelling and Redness, Nausea and/or Vomiting - Discharge Plan Home Medications: Home Meds Pantoprazole Sodium [Protonix] 40 mg PO DAILY 08/29/16 [History] Ranitidine [Zantac] 150 mg PO DAILY 08/29/16 [History] Sucralfate [Carafate] 1 gm PO BID 08/29/16 [History] Biotin 10,000 mcg PO DAILY 08/11/17 [History] Calcium Carbonate [Tums Extra Strength] 2 tab PO TID 08/11/17 [History] Cyanocobalamin (Vitamin B-12) [Vitamin B-12] 1,000 mcg PO DAILY 08/11/17 [ History] LORazepam 1 mg PO BEDTIME 08/11/17 [History] Multivitamin [Flintstones] 3 tab PO DAILY 08/11/17 [History] Sulfamethoxazole/Trimethoprim [Bactrim Ds Tablet] 1 tab PO BID 08/18/17 [History ] Referrals: Eric Henley MD [Primary Care Provider] - (As scheduled) - Discharge Summary/Plan Comment DC Time >30 min.: No Discharge Summary/Plan Comment: Discharge instructions: 1. Discharge home 2. Regular, high fiber, high fluid intake diet. 3. Precautions given concern increased pain, bleeding, temperature, signs/ symptoms of DVT and signs and symptoms of bowel obstruction 4. Activity and follow-up discussed with patient appear 5. Medications per home medication was printed, discussed this and given to the patient. Patient is cautioned against using opioids because of the constipating effect. 5. Return to clinic as scheduled in approximately 1 week. Diagnosis: Pelvic pain status post surgery, constipation Condition: Good - Patient Data Vitals - Most Recent: Last Vital Signs Temp 36.4 C 08/19/17 11:38 Pulse 66 08/19/17 11:38 Resp 19 08/19/17 11:38 BP 94/49 L 08/19/17 11:38 Pulse Ox 96 08/19/17 11:38 Weight - Most Recent: 72.756 kg Med Orders - Current: Current Medications Discontinued Medications Acetaminophen (Tylenol) 975 mg PO NOW ONE Stop: 08/19/17 06:48 Last Admin: 08/19/17 06:53 Dose: 975 mg Diatrizoate Meglum/Diatrizoate Sod (Gastrografin 37%) 45 ml PO ONETIME ONE Stop: 08/19/17 05:00 Last Admin: 08/19/17 05:00 Dose: 45 ml Dicyclomine HCl (Bentyl) 20 mg IM ONETIME ONE Stop: 08/19/17 06:42 Last Admin: 08/19/17 06:46 Dose: 20 mg Dicyclomine HCl (Bentyl) 20 mg PO Q6H PRN PRN Reason: Pain Dicyclomine HCl (Bentyl) 20 mg IM Q6H PRN PRN Reason: Pain Diphenhydramine HCl (Benadryl) 25 mg IVPUSH ONETIME ONE Stop: 08/18/17 23:20 Last Admin: 08/18/17 23:32 Dose: 25 mg Hydromorphone HCl (Dilaudid) 1 mg IVPUSH ONETIME ONE Stop: 08/18/17 22:47 Last Admin: 08/18/17 22:53 Dose: 1 mg Dextrose/Sodium Chloride (Dextrose 5%-Normal Saline) 1,000 mls @ 500 mls/hr IV ASDIRECTED [facility] Last Admin: 08/18/17 23:16 Dose: 500 mls/hr Promethazine HCl 25 mg/ Sodium (Chloride) 51 mls @ 100 mls/hr IV ONETIME ONE Stop: 08/18/17 23:49 Last Admin: 08/18/17 23:30 Dose: 100 mls/hr Promethazine HCl 25 mg/ Sodium (Chloride) 51 mls @ 100 mls/hr IV ONETIME ONE Stop: 08/19/17 07:12 Last Admin: 08/19/17 06:53 Dose: 100 mls/hr Dextrose/Sodium Chloride (Dextrose 5%-Normal Saline) 1,000 mls @ 200 mls/hr IV ASDIRECTED [facility] Last Admin: 08/19/17 08:15 Dose: 200 mls/hr Promethazine HCl 25 mg/ Sodium (Chloride) 51 mls @ 100 mls/hr IV Q6H PRN PRN Reason: Nausea Iopamidol (Isovue-300 (61%)) 125 ml IVPUSH ONETIME ONE Stop: 08/19/17 00:27 Last Admin: 08/19/17 00:51 Dose: 125 ml Ketorolac Tromethamine (Toradol) 30 mg IVPUSH ONETIME [facility] Last Admin: 08/19/17 01:22 Dose: 30 mg Lactulose (Cephulac) 20 gm PO ONETIME ONE Stop: 08/19/17 01:03 Last Admin: 08/19/17 01:15 Dose: 20 gm Lorazepam (Ativan) 1 mg IVPUSH ONETIME ONE Stop: 08/19/17 03:10 Last Admin: 08/19/17 03:16 Dose: 1 mg Magnesium Citrate (Citrate Of Magnesia) 300 ml PO ONETIME ONE Stop: 08/19/17 01:03 Last Admin: 08/19/17 01:15 Dose: 300 ml Ondansetron HCl (Zofran) 4 mg IVPUSH ONETIME ONE Stop: 08/18/17 22:47 Last Admin: 08/18/17 22:53 Dose: 4 mg Ondansetron HCl (Zofran) 4 mg IVPUSH ONETIME ONE Stop: 08/19/17 08:08 Last Admin: 08/19/17 11:29 Dose: Not Given *Q Meaningful Use (DIS) - VTE *Q VTE Criteria *Q: - Stroke *Q Stroke Criteria *Q: - AMI *Q AMI Criteria *Q:
== END 2017-08-19 13:15 | disposition home or self-care (01) ==
LOC: JD.ED 22:23 → JD.MS 08-19 06:43
PROVIDERS: ADMIT Obstetrics & Gynecology; ATTEND Obstetrics & Gynecology
DX: K59.09 Other constipation (principal); N39.0 Urinary tract infection, site not specified; R10.84 Generalized abdominal pain; R11.14 Bilious vomiting; K21.9 Gastro-esophageal reflux disease without esophagitis; Z86.19 Personal history of other infectious and parasitic diseases; G25.81 Restless legs syndrome; F41.9 Anxiety disorder, unspecified; F32.9 Major depressive disorder, single episode, unspecified; E11.9 Type 2 diabetes mellitus without complications; D64.9 Anemia, unspecified; F17.210 Nicotine dependence, cigarettes, uncomplicated; Z88.8 Allergy status to other drugs, medicaments and biological substances; Z79.899 Other long term (current) drug therapy; Z98.84 Bariatric surgery status; Z90.49 Acquired absence of other specified parts of digestive tract; Z90.710 Acquired absence of both cervix and uterus; Z90.89 Acquired absence of other organs; Z98.890 Other specified postprocedural states
CPT/HCPCS: 36415; 51798; 71010; 74000; 74177; 80053; 81001; 83690; 85025; 86140; 87040; 96361; 96365; 96375; 99285; A9270; G0378; J0500; J1170; J1200; J1885; J2060; J2405; J2550; J7042; J7050; Q9963; Q9967